=== PATIENT | female | born 2005 | race Caucasian/White ===

== ENCOUNTER 2024-01-12 15:51 | Emergency (ER) | payer BC, SELFPAY ==
--- NOTE | ~2024-01-12 | XR_ITS ---
EXAMINATION: XR foot RT min 3V DATE: 01/12/2024 16:20 INDICATION: Right foot pain. TECHNIQUE: 4 views of right foot were obtained. COMPARISON: None. FINDINGS: Bone alignment is normal. No fracture. Joint spaces are normal. There is forefoot soft tiss ue swelling. IMPRESSION: 1. No fracture. Reviewed, dictated and finalized at location E. IMPRESSION: 1. No fracture.
--- NOTE | 2024-01-12 16:08 | ED.LOWEXIN ---
HPI - Extremity Injury (Lower) General Chief Complaint: Extremity Injury, Lower Stated Complaint: Injured Right foot Time Seen by Provider: 01/12/24 16:36 Source: patient, RN notes reviewed and old records reviewed Mode of arrival: ambulatory Limitations: no limitations History of Present Illness HPI Narrative: 18-year-old female presents to the [facility] with dorsal right foot pain and swelling after a small mini Fridge fell over landing on her foot. Happened just prior to arrival No treatment prior to arrival Onset (ago): minute(s) Related Data Home Medications Medication Instructions Recorded Confirmed bupropion HCl 300 mg 24 hr tablet, 300 mg PO DAILY 01/12/24 01/12/24 extended release clonidine HCl 0.1 mg tablet 0.1 mg PO DAILY 01/12/24 01/12/24 norethindrone 1 mg-ethinyl 1 tablet PO DAILY 01/12/24 01/12/24 estradiol 10 mcg (24)-iron 10 mcg(2) tablet (Lo Loestrin Fe) Allergies Allergy/AdvReac Type Severity Reaction Status Date / Time No Known Allergies Allergy Verified 01/12/24 16:09 Review of Systems Review of Systems: All systems reviewed & are unremarkable except as noted in HPI and below Constitutional: Constitutional: Reports no additional constitutional complaints Eyes: Eyes: Reports no additional eye complaints ENT: Reports system reviewed and no additional complaints, except as documented Cardiovascular: Cardiovascular: Reports no additional cardiovascular complaints, Denies chest pain and Denies dyspnea Respiratory: Respiratory: Reports no additional respiratory complaints, Denies chest congestion, Denies cough and Denies dyspnea Gastrointestinal: Gastrointestinal: Reports no additional gastrointestinal complaints, Denies abdominal pain, Denies nausea and Denies vomiting Musculoskeletal: Musculoskeletal: Reports as per HPI Integumentary/Breasts: Skin/Breast: Reports system reviewed and no additional complaints, except as docu Neurologic: Reports system reviewed and no additional complaints, except as documented Psychiatric: Psychiatric: Reports no additional psychiatric complaints Allergic/Immunologic: Allergic/Immunologic: Reports no additional allergic/immunologic complaints PMFSH Comments At the time of my signature, I reviewed and agree with the nursing past medical, surgical, social, and family history. There is no relevant family history pertinent to the patient complaint. Exam Const: General: cooperative, healthy appearing, comfortable, no acute distress, well developed, alert and well nourished Nutritional Appearance: well nourished Orientation/consciousness: patient oriented x3 Limitations: no limitations HENMT: Head: normal to inspection Ears: hearing grossly normal bilaterally and external ears normal Face/Nose/Sinus: Normal external nose present, Normal nares present, Normal nasal mucous membranes and turbinates present, normal facial exam and face symmetric Face and sinus: normal facial exam and face symmetric Eyes: General: appearance normal, both eyes and all related structures Alignment and Position: alignment normal Periorbital: periorbital findings normal Pupils: Equal, round and reactive pupils present EOM: EOMs intact bilaterally Neck: Neck: normal visual inspection, full ROM, no lymphadenopathy and no meningeal signs Chest: Chest palpation & inspection: normal inspection of the chest Resp: Effort & Inspection: normal respiratory effort and able to speak in complete sentences Cardio: Rate: regular rate Rhythm: regular rhythm Skin: General skin exam: normal color and no rashes or lesions noted Lesions: no lesions Rashes: no rashes Wounds: no wounds Neuro: General: patient oriented x3, tone normal, moves all extremities and no meningeal signs Cranial nerves: Yes Equal, round and reactive pupils present Cognition (Neuro): normal cognition Speech: normal speech Extrem: General: normal to inspection, full ROM and capillary refill normal Right lo
[2024-01-12 16:22] VITALS: BP 126/81; PULSE 109; RESP 16; TEMP 36.7; O2SAT 100
== END 2024-01-12 16:54 | disposition home or self-care (01) ==
PROVIDERS: Emergency Provider Nurse Practitioner
DX: S90.31XA Contusion of right foot, initial encounter (principal); W20.8XXA Other cause of strike by thrown, projected or falling object, initial encounter; F41.9 Anxiety disorder, unspecified; F32.A Depression, unspecified
CPT/HCPCS: 73630; 99213; G0463

== ENCOUNTER 2024-07-23 19:53 | Emergency (ER) | payer BC, SELFPAY ==
--- NOTE | ~2024-07-23 | XR_ITS ---
HISTORY: cat bite w/ swelling; eval FB COMPARISON: None TECHNIQUE: 2 views of the left forearm were performed FINDINGS: No acute fracture. No significant soft tissue tissue swelling. No radiopaque foreign body. IMPRESSION: No radiopaque foreign body within the region of clinical concern Reviewed, dictated and finalized at location A. CARE CONTACT SPECIALIST
--- NOTE | ~2024-07-23 | XR_ITS ---
HISTORY: cat bite, swelling, eval FB COMPARISON: None TECHNIQUE: 3 views of the right second digit were performed FINDINGS: No acute fracture. Soft tissue swelling. No radiopaque foreign body IMPRESSION: As above Reviewed, dictated and finalized at location A. NUE SPECIALIST IMPRESSION: As above
--- NOTE | ~2024-07-23 | XR_ITS ---
HISTORY: cat bite w/ swelling; eval FB COMPARISON: None TECHNIQUE: 3 views of the left third digit were performed FINDINGS: No acute fracture. Soft tissue swelling. No radiopaque foreign body. IMPRESSION: Soft tissue swelling without radiopaque foreign body within the region of clinical morgan rn Reviewed, dictated and finalized at location A. STITCHER IMPRESSION: Soft tissue swelling without radiopaque foreign body within the re gion of clinical concern
[2024-07-23 19:56] VITALS: BP 142/97; PULSE 96; RESP 14; TEMP 36.5; O2SAT 100
--- NOTE | 2024-07-23 20:09 | ED_ITS ---
HPI - Animal Bite General Chief Complaint: Animal Bite Stated Complaint: cat attack Time Seen by Provider: 07/23/24 20:08 Source: patient Mode of arrival: ambulatory Limitations: no limitations History of Present Illness HPI narrative: Aismh-jekz-nfvuuvas female presents with pain after a cat bite and scratches yes terday at 4pm. She presented to urgent care yesterday. No imaging was done but her tetanus was updated and she was prescribed a course of Augmentin. She took her 1st dose this morning in addition to Tylenol. This was a CT they are fostering which is up-to-date on its shots. Related Data Home Medications Medication Instructions Recorded Confirmed bupropion HCl 300 mg 24 hr tablet, 300 mg PO DAILY 01/12/24 01/12/24 extended release clonidine HCl 0.1 mg tablet 0.1 mg PO DAILY 01/12/24 01/12/24 norethindrone 1 mg-ethinyl 1 tablet PO DAILY 01/12/24 01/12/24 estradiol 10 mcg (24)-iron 10 mcg(2) tablet (Lo Loestrin Fe) amitriptyline 10 mg tablet mg 07/23/24 Allergies Allergy/AdvReac Type Severity Reaction Status Date / Time No Known Allergies Allergy Verified 07/23/24 19:54 [facility] Past Medical History Medical History Right hand dominant Exam Narrative: GENERAL: Well-appearing, well-nourished, and in no acute distress. HEAD: Normocephalic, atraumatic. EYES: Non injected, non icteric ENT: Nares clear, no rhinorrhea or epistaxis. NECK: Supple. CHEST: Speaking in full sentences. No respiratory distress. HEART: Regular rate and rhythm. Brisk capillary refill in her distal digits. ABDOMEN: Soft, nondistended. EXTREMITIES/SKIN: Warm, dry. Area of warm and tender erythema 6 x 8 cm along left forearm. Left 3rd digit also erythematous and tender from the PIP distally with associated swelling. There is also a small superficial laceration at proximal nail fold in this digit. R 2nd digit also erythematous and edematous, tender to touch. Areas marked with skin pen. Scattered superficial abrasions. Patient has pain and difficulty with full flexion in the affected digits although can extend them. NEURO: No focal deficits. Alert and oriented x3. PSYCH: Normal mood and affect. Course Vital Signs Vital signs: Vital Signs Temperature 97.7 F 07/23/24 19:56 Pulse Rate 96 07/23/24 19:56 Respiratory Rate 14 07/23/24 19:56 Blood Pressure 142/97 H 07/23/24 19:56 Pulse Oximetry 100 07/23/24 19:56 Oxygen Delivery Room Air 07/23/24 19:56 Temperature 97.7 F 07/23/24 19:56 Pulse Rate 85 07/23/24 23:23 Respiratory Rate 16 07/23/24 23:23 Blood Pressure 124/87 07/23/24 23:23 Pulse Oximetry 100 07/23/24 23:23 Oxygen Delivery Room Air 07/23/24 19:56 MDM - Animal Bite MDM Narrative Medical decision making narrative: Uoufk-uqws-vxzzjowq female presents after cat bite scratch is sustained yesterday. She initially presented to urgent care yesterday and her tetanus shot was updated she was prescribed Augmentin, took her 1st dose this morning. Continues to have pain and swelling. In the emergency department she is afebrile with vital signs notable for hypertension. L 3rd digit [place] signs for flexor sheath infection (flexor tenosynovitis) Finger held in slight flexion: No Fusiform swelling of affected digit: No Tenderness along flexor tendon sheath: Yes Pain with passive extension of digit: No R 2nd digit [place]avel signs for flexor sheath infection (flexor tenosynovitis) Finger held in slight flexion: No Fusiform swelling of affected digit: No Tenderness along flexor tendon sheath: No Pain with passive extension of digit: No Pain medication as well as ampicillin sulbactam ordered. Patient is reassessed and states she is feeling better and thinks that the areas are less red and more pink. I did discuss patient with Dr. Mills / plastic surgeon. Given they have only had 1 dose of Augmentin, reasonable to discharge with outpatient care recommendations, advise continuing PO Augmentin, and give return precautions. Stable for discharge. Differential Diagnosis Differential diagnosis: Likely bite by animal, cat bite and other (cellulitis, considered flexor tenosynovitis) Lab Data Attestation: I reviewed the patient's lab results. Lab results narrative: Mild elevation hemoglobin 07/23/24 21:07 07/23/24 21:07 Labs: Lab Results 11/11/24 Range/Units 21:07 WBC 6.9 (4.5-10.0) K/mm3 RBC 4.86 (4.2-5.4) M/mm3 Hgb 15.2 H (12.0-15.0) g/dL Hct 43.6 (37.0-47.0) % MCV 89.7 (80-100) fl MCH 31.3 (26-34) pg MCHC 34.9 (32-36) g/dl RDW 12.6 (11.5-14.5) % Plt Count 322 (150-375) k/mm3 MPV 8.6 (7.4-10.4) fl Immature Gran % (Auto) 0.1 (0-0.5) % Neut % (Auto) 58.0 (45.5-73.1) % Lymph % (Auto) 31.9 (18.3-44.2) % [place] % (Auto) 6.0 (2.6-8.5) % Eos % (Auto) 3.6 (0-4.4) % Baso % (Auto) 0.4 (0.2-1.2) % Lymph # (Auto) 2.19 (0.9-3.2) K/mm3 [place] # (Auto) 0.4 (0.1-0.6) K/mm3 Eos # (Auto) 0.3 (0-0.3) K/mm3 Baso # (Auto) 0.0 (0.0-0.1) K/mm3 Abs Immat Gran (auto) 0.01 (0.00-0.031) K/mm3 Absolute Neuts (auto) 4.0 (1.3-6.7) K/mm3 Absolute Nucleated RBC 0.000 (0.0-0.012) K/mm3 Nucleated RBC % 0.0 (0.0-0.2) % PT 13.3 (11.1-14.7) Seconds INR 1.0 APTT 30.2 (22.3-36.8) Seconds Sodium 139 (134-143) mmol/L Potassium 3.8 (3.4-5.0) mmol/L Chloride 105 (98-107) mmol/L Carbon Dioxide 24 (22-30) mmol/L Anion Gap 10 (4-12) mmol/L BUN 14 (8-21) mg/dL Creatinine 0.70 (0.7-1.0) mg/dL Estim Creat Clear Calc 116 ml/min Estimated GFR > 60 (59 - ) Glucose 87 (65-110) mg/dL Calcium 9.5 (8.9-10.7) mg/dL Imaging Data Attestation: I personally reviewed and interpreted this imaging study as follows : My impression: All images reviewed by me and are evidence of foreign body or gas in tissue on my independent interpretation Radiologist's impression: Impressions Finger X-Ray 07/23/24 22:42 IMPRESSION: As above Finger X-Ray 07/23/24 22:43 IMPRESSION: Soft tissue swelling without radiopaque foreign body within the region of clinical concern Forearm X-Ray 07/23/24 22:44 IMPRESSION: No radiopaque foreign body within the region of clinical concern Discharge Plan Discharge Clinical Impression: Cat bite involving extremity, Elevated hemoglobin Patient Disposition: Home, Self-Care Condition: Stable Instructions: Antibiotic Form, Animal Bite (ED) Additional Instructions: Use warm compresses and elevate the affected areas above the level of the heart when possible. Continue taking your Augmentin antibiotic as prescribed. Follow up with plastic/hand surgeon if necessary and return to the ED if any new/worsening symptoms such as streaking or spreading redness, fever >100.4F, unable to bend/move fingers, etc. It is safe to continue taking acetaminophen/Tylenol (maximum 4000mg/day) for pain. Prescriptions: New acetaminophen 500 mg capsule 1,000 mg PO Q6H PRN (Reason: pain) Qty: 30 0RF No Action clonidine HCl 0.1 mg tablet 0.1 mg PO DAILY bupropion HCl 300 mg tablet extended release 24 hr 300 mg PO DAILY Lo Loestrin Fe 1 mg-10 mcg (24)/10 mcg (2) tablet 1 tablet PO DAILY ibuprofen 600 mg tablet 600 mg PO TID PRN (Reason: fever or pain) Qty: 30 0RF amitriptyline 10 mg Tablet Follow-up/Referrals: Fran Mills MD [Physician] - (Plastic surgery) PHYSICIAN,HOUSING MANAGEMENT REPRESENTATIVE [Non-Staff] - Stand Alone Forms: Work/School Release IP Time of Disposition: 23:03
[2024-07-23 21:43] LABS: Basophils Percent Auto 0.4 % (0.2-1.2); Eosinophils Absolute Auto 0.3 K/mm3 (0-0.3); Eosinophils Percent Auto 3.6 % (0-4.4); Hematocrit 43.6 % (37.0-47.0); Hemoglobin 15.2 g/dL (12.0-15.0); Immature Granulocyte Absolute 0.01 K/mm3 (0.00-0.031); Immature Granulocyte Percent A 0.1 % (0-0.5); Lymphocytes Absolute Auto 2.19 K/mm3 (0.9-3.2); Lymphocytes Percent Auto 31.9 % (18.3-44.2); Mean Corpuscular HGB Conc 34.9 g/dl (32-36); Mean Corpuscular Hemoglobin 31.3 pg (26-34); Mean Corpuscular Volume 89.7 fl (80-100); Mean Platelet Volume 8.6 fl (7.4-10.4); Monocytes Absolute Auto 0.4 K/mm3 (0.1-0.6); Platelet Count Result 322 k/mm3 (150-375); Red Blood Count 4.86 M/mm3 (4.2-5.4); Red Cell Distribution Width 12.6 % (11.5-14.5); White Blood Count 6.9 K/mm3 (4.5-10.0)
[2024-07-23] MEDS: HYDROcodone/acetaminophen (*CRX) 5-325 MG TABLET 1 TAB PO (21:44)
[2024-07-23] MEDS: AMPICILLIN SULB 3 GM/NS 100 ML 3 GM/100 ML VIAL IVPB (21:44)
[2024-07-23 21:54] LABS: Anion Gap 10 mmol/L (4-12); Blood Urea Nitrogen 14 mg/dL (8-21); Calcium 9.5 mg/dL (8.9-10.7); Carbon Dioxide 24 mmol/L (22-30); Chloride 105 mmol/L (98-107); Estimated CRCL calculation 116 ml/min; Estimated Glomerular Filt Rate > 60; Glucose 87 mg/dL (65-110); Potassium 3.8 mmol/L (3.4-5.0); Sodium 139 mmol/L (134-143)
[2024-07-23 21:55] LABS: Prothrombin Time 13.3 Seconds (11.1-14.7)
[2024-07-23 21:56] LABS: Partial Thromboplastin Time 30.2 Seconds (22.3-36.8)
--- NOTE | 2024-07-23 22:11 | PC.NURSE ---
Pt c/o most pain to L. third finger. That finger is swollen and red. Multiple scratches to R. forearm and puncture wounds to L. forearm.
[2024-07-23 23:23] VITALS: BP 124/87; PULSE 85; RESP 16; O2SAT 100
== END 2024-07-23 23:25 | disposition home or self-care (01) ==
PROVIDERS: Emergency Provider Student in an Organized Health Care Education/Training Program
DX: S51.852A Open bite of left forearm, initial encounter (principal); S61.253A Open bite of left middle finger without damage to nail, initial encounter; S61.250A Open bite of right index finger without damage to nail, initial encounter; W55.01XA Bitten by cat, initial encounter
CPT/HCPCS: 36415; 73090; 73140; 80048; 85025; 85610; 85730; 87040; 96365; 99284; A9270; J0295

== ENCOUNTER 2025-03-23 23:55 | Emergency (ER) | payer OTHER, SELFPAY ==
[2025-03-24 00:02] VITALS: BP 134/98; PULSE 93; RESP 20; TEMP 36.4; O2SAT 97
[2025-03-24 00:16] LABS: Hematocrit 42.4 % (37.0-47.0); Hemoglobin 14.6 g/dL (12.0-15.0); Immature Granulocyte Percent A 0.1 % (0-0.5); Lymphocytes Absolute Auto 3.28 K/mm3 (0.9-3.2); Mean Corpuscular HGB Conc 34.4 g/dl (32-36); Mean Corpuscular Hemoglobin 30.4 pg (26-34); Mean Corpuscular Volume 88.3 fl (80-100); Nucleated Red Blood Cells Absolute Auto 0.000 K/mm3 (0.0-0.012); Nucleated Red Blood Cells Perc 0.0 % (0.0-0.2); Platelet Count Result 310 k/mm3 (150-375); Red Blood Count 4.80 M/mm3 (4.2-5.4); White Blood Count 7.6 K/mm3 (4.5-10.0)
--- NOTE | 2025-03-24 00:23 | ED_ITS ---
HPI - Abdominal Pain General Chief Complaint: Abdominal Pain Stated Complaint: intense abd pain Time Seen by Provider: 03/24/25 00:07 Source: patient and family Mode of arrival: ambulatory Limitations: no limitations History of Present Illness HPI narrative: 19 y/o WF in the ED for epigastric abd pain X2 hrs. Pt unsure of cause. Pt last meal was some mozzarella sticks for dinner. Pt works at [employer], denies any recent heavy lifiting. Pt denies hx of GERD or hernia. Pt on oral BC, hasn't had a period in years. Pt denies CP, SOB, dysuria, hematuria. Pt endorses some nausea, but no vomiting. Pt took Motrin prior to arrival, brining pain down from 6 to 2-3. Related Data Home Medications ?Medication ?Instructions ?Recorded ?Confirmed ?Last Taken ?Type bupropion HCl 300 mg 24 hr tablet, 300 mg PO DAILY 01/12/24 01/12/24 Unknown History extended release norethindrone 1 mg-ethinyl 1 tablet PO DAILY 01/12/24 01/12/24 Unknown History estradiol 10 mcg (24)-iron 10 mcg(2) tablet (Lo Loestrin Fe) amitriptyline 10 mg tablet mg 07/23/24 Unknown History Allergies Allergy/AdvReac Type Severity Reaction Status Date / Time No Known Allergies Allergy Verified 08/03/24 08:07 Review of Systems 2 Review of Systems: CONSTITUTIONAL: Denies fever, chills, or sweats. EYES: Denies visual changes, redness, or discharge. ENT: Denies rhinorrhea, congestion, sore throat, or otalgia. CARDIOVASCULAR: Denies chest pain, palpitations, or edema. RESPIRATORY: Denies cough or dyspnea. GASTROINTESTINAL: Endorses epigastric abdominal pain and nausea. Denies vomiting, or diarrhea. GENITOURINARY: Denies dysuria or hematuria. SKIN: Denies rash or itching. MUSCULOSKELETAL: Denies back pain, joint pain, or myalgia. NEUROLOGIC: Denies headache, numbness, or weakness. PSYCHIATRIC: Denies anxiety or depression. [facility] Past Medical History Medical History Right hand dominant Social History Social History Smoking status: Never smoker Alcohol intake: never Substance use: never Exam 2 Narrative: GENERAL: Well-appearing, well-nourished, and in no acute distress. HEAD: Normocephalic, atraumatic. EYES: PERRLA and EOMI. ENT: Nares clear, no rhinorrhea or epistaxis. Mucous membranes moist. NECK: Supple. CHEST: Clear to auscultation. No respiratory distress. HEART: Regular rate and rhythm. No murmur heard. Normal peripheral pulses. ABDOMEN: Soft, nontender, nondistended, normal active bowel sounds. No pain at McBurney's point, negative Rovsing sign. EXTREMITIES: Normal range of motion. No edema. SKIN: Warm, dry, no rash. NEURO: No focal deficits. Alert and oriented x3. PSYCH: Normal mood and affect. Course Vital Signs Vital signs: Vital Signs Temperature 36.4 C 03/24/25 00:02 Pulse Rate 93 03/24/25 00:02 Respiratory Rate 20 03/24/25 00:02 Blood Pressure 134/98 H 03/24/25 00:02 Pulse Oximetry 97 03/24/25 00:02 Temperature 36.4 C 03/24/25 00:02 Pulse Rate 93 03/24/25 00:02 Respiratory Rate 20 03/24/25 00:02 Blood Pressure 134/98 H 03/24/25 00:02 Pulse Oximetry 97 03/24/25 00:02 MDM - Abdominal Pain MDM Narrative Medical decision making narrative: Unremarkable physical exam. Normal blood work. Positive blood and leukocytes in the urine, will treat for UTI. Patient pain resolved at this time denying nausea. Differential Diagnosis Differential diagnosis: Likely abdominal pain, acute appendicitis and other (UTI) Medical Records Attestation: I reviewed the patient's medical records. Lab Data Attestation: I reviewed the patient's lab results. 03/24/25 00:07 03/24/25 00:07 Labs: Lab Results 03/24/25 Range/Units 00:07 WBC Pending RBC Pending Hgb Pending Hct Pending MCV Pending MCH Pending MCHC Pending RDW Pending Plt Count Pending MPV Pending Immature Gran % (Auto) Pending Neut % (Auto) Pending Lymph % (Auto) Pending [place] % (Auto) Pending Eos % (Auto) Pending Baso % (Auto) Pending Lymph # (Auto) Pending [place] # (Auto) Pending Eos # (Auto) Pending Baso # (Auto) Pending Abs Immat Gran (auto) Pending Absolute Neuts (auto) Pending Absolute Nucleated RBC Pending Nucleated RBC % Pending Sodium Pending Potassium Pending Chloride Pending Carbon Dioxide Pending Anion Gap Pending BUN Pending Creatinine Pending Estim Creat Clear Calc Pending Estimated GFR Pending Glucose Pending Calcium Pending Total Bilirubin Pending AST Pending ALT Pending Alkaline Phosphatase Pending Total Protein Pending Albumin Pending Lipase Pending Discharge Plan Discharge Clinical Impression: UTI (urinary tract infection) Qualifiers: Urinary tract infection type: site unspecified Hematuria presence: with hematuria Qualified Code(s): N39.0 - Urinary tract infection, site not specified Abdominal pain Qualifiers: Abdominal location: upper abdomen, unspecified Qualified Code(s): R10.10 - Upper abdominal pain, unspecified Patient Disposition: Home Condition: Stable Instructions: Antibiotic Form, Urinary Tract Infection in Women (ED), Abdominal Pain (ED) Additional Instructions: Take antibiotics as ordered and to completion. Take Tylenol or Motrin [id number] for aches and pains. Follow up with primary care doctor. Return to the ED if worsening complaints. Patient Language: Polish Prescriptions: New nitrofurantoin monohyd/m-cryst [Macrobid] 100 mg capsule 100 mg PO Q12H 5 Days Qty: 10 0RF Rx Instructions: must administer with a meal/food No Action bupropion HCl 300 mg tablet extended release 24 hr 300 mg PO DAILY Lo Loestrin Fe 1 mg-10 mcg (24)/10 mcg (2) tablet 1 tablet PO DAILY ibuprofen 600 mg tablet 600 mg PO TID PRN (Reason: fever or pain) Qty: 30 0RF amoxicillin-pot clavulanate 875-125 mg tablet 1 tablet PO BID Qty: 10 0RF amitriptyline 10 mg Tablet acetaminophen 500 mg capsule 1,000 mg PO Q6H PRN (Reason: pain) Qty: 30 0RF Follow-up/Referrals: PHYSICIAN NOT ON STAFF,NONSTAFF [Primary Care Provider] - 1 Week
[2025-03-24 00:30] LABS: Alanine Aminotransferase 19 U/L (6-35); Albumin Level 4.3 g/dL (3.5-5.1); Alkaline Phosphatase 86 U/L (38-126); Anion Gap 8 mmol/L (4-12); Aspartate Amino Transferase 26 U/L (14-36); Bilirubin,Total 0.5 mg/dL (0.2-1.3); Blood Urea Nitrogen 13 mg/dL (7-17); Calcium 9.3 mg/dL (8.4-10.2); Carbon Dioxide 23 mmol/L (22-30); Chloride 107 mmol/L (98-107); Estimated Glomerular Filt Rate > 60; Glucose 93 mg/dL (65-110); Lipase 133 U/L (23-300); Potassium 3.6 mmol/L (3.4-5.0); Sodium 138 mmol/L (137-145); Total Protein 7.4 g/dL (6.3-8.2)
--- OUTSIDE RECORDS SUMMARY | 2025-03-24 00:35 | XMS_ITS | Clinical Summary ---
Author Organization [facility] Address [address] [place] [address] Phone Care Team Providers Care Commercial Management Accountant Name Role Phone Identified, No Provider Primary Care Provider Un available Allergies No known active allergies Medications POLYETHYLENE GLYCOL 3350 (MIRALAX OR) Active MULTIVITAMIN (CHILDREN'S MULTIVIT COMPLETE OR) Active Active Problems Problem Noted Date Diagnosed Date Unspecified constipation 01/22/2013 Encopresis(307.7) 01/22/2013 Immunizations Immunization Administration Dates Next Due DTAP/IPV/HEPB (PEDIARIX) 04/20/2005,02/18/2005,0 2004 DTaP-Acellular (Infanrix) 01/20/2006 HEP B - Engerix 0.5ml 2004 HIB - PRP-OMP (PEDVAX) 10/20/2005,2005,02/18/2005,02/18,2004,2004 Influenza (Flu Quad PF) 08/04/2007,07/07,07/20/2006,07/28 Cnizaxs-Bvnmu-Izlysee - MMR 10/20/2005 Pneumococcal Polysaccharide (Pneumovax 23) 01/20/2006,04/20/2005,02/18/2005,12/18 Pneumonia (PREVNAR 7) 01/20/2006, 005,02/18/2005,12/18 Varivax under 13 10/20/2005 Social History Tobacco Use Types Packs/Day Years Used Date Smoking Tobacco: Never Alcohol Use Standard Drinks/Week Comments Not Asked 0 (1 standard drink = 0.6 oz pur e alcohol) Comments Unknown Sex and Gender Information Value Date Recorded Sex Assigned at Not on file Legal Sex Female 8:39 AM PASTRY COOK APPRENTICE Gender Identity Not on file Sexual Orientation Not on file Last Filed Vital Signs Vital Sign Reading Time Taken Comments Blood Pressure 98/52 01/22/2013 3:31 PM CDT Pulse 77 07/15/2014 2:23 PM PASTRY COOK APPRENTICE Temperature 36.8 C (98.2 F) 04/16/2013 8:37 AM CDT Respiratory Rate 20 07/15/2014 2:23 PM PASTRY COOK APPRENTICE Oxygen Saturation 100% 07/15/2014 2:23 PM PASTRY COOK APPRENTICE Inhaled Oxygen Concentration - - Weight 36.9 kg (81 lb 5.6 oz) 07/15/2014 2:23 PM PASTRY COOK APPRENTICE Height 135.4 cm (4' 5.31) 01/22/2013 3:31 PM CD T Body Mass Index - - Plan of Treatment Health Maintenance Due Date Last Done Comments IPV Vaccines (4 of 4 - 4-dose series) 2008 04/20/2005, 02/18/2005, 2004 Varicella Vaccines (2 of 2 - 2-dose childhood series) 2008 10/20/2005 DTaP/Tdap/Td Vaccines (5 - Tdap) 2015 01/20/2006, 04/20/2005, 02/18/2005, Additional history exists Depression Screening 2016 Chlamydia Screening 2019 HPV Vaccines (1 - 3-dose series) 2019 Meningococcal B Vaccine (1 of 2 - Standard) 2020 COVID-19 Vaccine ( season) 2024 Influenza Vaccine (#1) 05/13/2025200 7, 07/07/2007, 07/20/2006, Additional history exists Hepatitis B Vaccines Completed 04/20/2005, 02/18/2005, 2004, Additional history exists HIB Vaccines Completed 10/20/2005, 04/2006, 02/18/2005, Additional history exists MMR Vaccines Completed 10/20/2005 Pneumococcal Vaccines Aged Out 01/20/2006 , 01/20/2006, 04/20/2005, Additional history exists No longer eligible based on patient's age to complete this topic Hepatitis A Vaccines Aged Out No long er eligible based on patient's age to complete this topic Meningococcal Vaccine (ACWY) Aged Out No longer eligible based on patient's age to complete this topic Rotavirus Vaccines Aged Out No longer eligible based on patient's age to complete this topic Insurance [place] [facility] [employer] [place] [facility] [employer] Care Teams Commercial Management Accountant Relationship Specialty Start Date End Date Identified, No Provider PCP - General 08/24/18
--- NOTE | 2025-03-24 00:41 | PC.NURSE ---
Pt unable to pee at this time. Asked to use call light when she can use the restroom.
[2025-03-24 01:19] LABS: BEDSIDEPREGUCG Negative (Negative)
[2025-03-24 01:43] LABS: Add Urine Microscopic? YES; Appearance Urine Clear (Clear); Glucose Urine UA Trace mg/dL (Negative); Leukocyte Esterase Ur Trace LEU/UL (Negative); Nitrate Urine Negative (Negative); Non Pathogenic Casts 0-2; Specific Grav Ur 1.025 (1.001-1.035)
== END 2025-03-24 02:16 | disposition home or self-care (01) ==
PROVIDERS: Emergency Medicine; Emergency Provider Registered Nurse Emergency
DX: N39.0 Urinary tract infection, site not specified (principal); R10.13 Epigastric pain
CPT/HCPCS: 36415; 80053; 81001; 81025; 83690; 85025; 99283

== ENCOUNTER 2025-07-08 09:54 | Emergency (ER) | payer OTHER, SELFPAY ==
[2025-07-08 10:08] VITALS: BP 117/81; PULSE 90; RESP 16; TEMP 36.8; O2SAT 99
[2025-07-08 10:24] LABS: EDCOVIDSCREEN Negative (Negative); EDINFLUASCREEN Negative (Negative); EDINFLUBSCREEN Negative (Negative); EDSTREPNEGPOS1 Negative (Negative)
--- NOTE | 2025-07-08 10:33 | ED.URI ---
HPI - URI/Sore Throat General Chief Complaint: Upper Respiratory Infection Stated Complaint: Strep Symptoms Time Seen by Provider: 07/08/25 10:20 Source: patient and RN notes reviewed Mode of arrival: ambulatory Limitations: no limitations History of Present Illness HPI Narrative: 19-year-old female presents to the [facility] complaining of upper respiratory symptoms for approximately 4 days. Patient reports rhinorrhea, sore throat, cough, body aches, headaches, runny nose, congestion. Patient denies any chest pain, difficulty breathing, nausea vomiting, diarrhea, chills, fevers, abdominal pain, any other upper respiratory symptoms, or any other symptoms. Patient says she starting to feel better, she said she has been taking [id number] cold/flu medication with some relief. Patient denies any significant past medical problems. Related Data Home Medications ?Medication ?Instructions ?Recorded ?Confirmed ?Last Taken ?Type bupropion HCl 300 mg 24 hr tablet, 300 mg PO DAILY 01/12/24 07/08/25 Unknown History extended release norethindrone 1 mg-ethinyl 1 tablet PO DAILY 01/12/24 07/08/25 Unknown History estradiol 10 mcg (24)-iron 10 mcg(2) tablet (Lo Loestrin Fe) amitriptyline 10 mg tablet mg 07/23/24 Unknown History Allergies Allergy/AdvReac Type Severity Reaction Status Date / Time No Known Allergies Allergy Verified 07/08/25 10:04 Review of Systems Review of Systems: CONSTITUTIONAL: Denies fever, chills,or sweats. Positive for body aches. EYES: Denies visual changes, redness, or discharge. ENT: Positive for rhinorrhea, congestion, sore throat. Negative for otalgia. CARDIOVASCULAR: Denies chest pain, palpitations, or edema. RESPIRATORY: Positive for cough. Negative for dyspnea or wheezing. GASTROINTESTINAL: Denies abdominal pain, nausea, vomiting, or diarrhea. GENITOURINARY: Denies dysuria or hematuria. SKIN: Denies rash or itching. MUSCULOSKELETAL: Denies back pain, joint pain, or myalgia. NEUROLOGIC: Denies headache, numbness, or weakness. PSYCHIATRIC: Denies anxiety or depression. All other systems reviewed are negative, except as documented in HPI. [facility] Past Medical History Medical History Right hand dominant Social History Social History Smoking status: Never smoker Alcohol intake: never Substance use: never Comments At the time of my signature, I reviewed and agree with the nursing past medical, surgical, social, and family history. There is no relevant family history pertinent to the patient complaint. Exam Narrative: GENERAL: This is a well-nourished, well-developed adult, in no apparent distress. They are non ill-appearing, nontoxic appearing. HEAD: normocephalic, atraumatic. EYES: Sclera clear/white. Vision is grossly intact. Conjunctiva normal bilaterally. Extraocular movements intact. EARS: External ears normal, auditory canals clear and without drainage, TMs without erythema or perforation. Hearing grossly intact. NOSE: External nose normal with no obvious nasal discharge, nasal turbinates erythematous, there is rhinorrhea. THROAT: Mucous membranes moist, posterior pharynx erythemic without swelling, no exudate. It is cobblestone appearing. Uvula is midline. Postnasal drip present. NECK: Neck supple, non-tender without lymphadenopathy, masses or thyromegaly. CARDIOVASCULAR: Regular rate and rhythm without murmurs, gallops, or rubs. RESPIRATORY: Clear to auscultation. Breath sounds equal bilaterally. No wheezes, rales, or rhonchi. SKIN: warm, Dry, intact with no suspicious lesions or rash, good texture and turgor. NEURO: awake, alert, and oriented to person, place and time. There were no obvious focal neurologic abnormalities. EXTREMITIES: No joint tenderness, effusion, or edema noted. BACK: Nontender without deformity. Course Course Emergency Course: Portions of this record may have been created with voice recognition software Level of Care: Express Care Visit Vital Signs Vital signs: Vital Signs Oxygen Delivery Room Air 07/08/25 10:00 Temperature 98.2 F 07/08/25 10:08 Pulse Rate 90 07/08/25 10:08 Respiratory Rate 16 07/08/25 10:08 Blood Pressure 117/81 07/08/25 10:08 Pulse Oximetry 99 07/08/25 10:08 Oxygen Delivery Room Air 07/08/25 10:00 MDM - URI/Sore Throat MDM Narrative Medical decision making narrative: Rapid COVID, flu, strep were negative. A throat culture is pending. Symptoms likely viral etiology. Patient reports improvement of symptoms. Discussed supportive care. Discussed physical exam findings. Advised supportive measures and signs/symptoms to go to the ER. Pt is appropriate for outpt treatment and f/u. Differential Diagnosis Differential diagnosis: Likely upper respiratory infection, sinusitis, viral infection and pharyngitis Lab Data Attestation: I reviewed the patient's lab results. Labs: Lab Results 07/08/25 Range/Units 10:02 POC Influenza A Ag Negative (Negative) POC Influenza B Ag Negative (Negative) POC SARS CoV-2 Ag Negative (Negative) POC Grp A Strep Screen Negative (Negative) Discharge Plan Discharge Clinical Impression: Upper respiratory infection Qualifiers: URI type: unspecified viral URI Qualified Code(s): J06.9 - Acute upper respiratory infection, unspecified Patient Disposition: Home Condition: Stable Instructions: Antibiotic Form, Upper Respiratory Infection (ED) Additional Instructions: Your rapid strep swab, flu, COVID was negative today at [facility]. You will be notified in a few days if the culture comes back positive for strep, and appropriate antibiotics will be called in for you at that time. Your symptoms are likely due to a viral illness, which is not treated with antibiotics. Viral symptoms can be present for up to 7-10 days. Take Tylenol or ibuprofen as needed for fever or pain. Follow the instructions on the bottle. Rest and stay hydrated. Follow up with your PCP in 3-5 days if symptoms are not improving. Go to the ER immediately if you develop chest pain, nausea, vomiting, fevers, difficulty breathing or swallowing, worsening symptoms, or any serious concerns. Patient Language: Romanian Prescriptions: No Action bupropion HCl 300 mg tablet extended release 24 hr 300 mg PO DAILY Lo Loestrin Fe 1 mg-10 mcg (24)/10 mcg (2) tablet 1 tablet PO DAILY ibuprofen 600 mg tablet 600 mg PO TID PRN (Reason: fever or pain) Qty: 30 0RF amitriptyline 10 mg Tablet Follow-up/Referrals: PHYSICIAN,PATIENT FINANCIAL SERVICES MANAGER [Primary Care Provider, Internal Medicine] Stand Alone Forms: Work/School Release IP Time of Disposition: 10:32
== END 2025-07-08 10:35 | disposition home or self-care (01) ==
DX: J06.9 Acute upper respiratory infection, unspecified (principal); Z20.822 Contact with and (suspected) exposure to COVID-19; F41.9 Anxiety disorder, unspecified; F32.A Depression, unspecified
CPT/HCPCS: 87081; 87426; 87804; 87880; 99213; G0463